=== PATIENT | male | born 1980 ===

== ENCOUNTER 2020-10-03 16:05 | Emergency (ER) | payer OTHER ==
[~2020-10-03] VITALS: Ht 172.7 cm; Wt 101.1 kg
--- NOTE | 2020-10-03 16:08 | NUR ---
Task RN: patient RA sat for EMS 89-90%. Patient to lobby and placed on O2.
[2020-10-03] MEDS ORDERED: IBUPROFEN 600 MG TABLET PO ONE (16:30)
[2020-10-03] MEDS ORDERED: ACETAMINOPHEN 500 MG TABLET PO ONE (16:30)
[2020-10-03 17:23] LABS: BASOPHILS % (AUTO) 0 % (0-1); EOSINOPHILS % (AUTO) 0 % (1-7); LYMPHOCYTES % (AUTO) 22 % (22-44); MEAN CORPUSCULAR HEMOGLOBIN 31.1 pg (27.5-34.5); MEAN CORPUSCULAR HGB CONC 35.2 g/dL (33.2-36.2); MEAN PLATELET VOLUME 7.9 fL (7.4-10.4); MONOCYTES % (AUTO) 7 % (2-9); NEUTROPHILS % (AUTO) 71 % (42-75); PLATELET COUNT 240 x10^3/uL (130-400); RED CELL DISTRIBUTION WIDTH 13.3 % (9.4-14.8)
[2020-10-03 17:30] LABS: CHLORIDE 92 mmol/L (98-107)
[2020-10-03 17:37] LABS: ALANINE AMINOTRANSFERASE 42 U/L (12-78); ALBUMIN 2.7 g/dL (3.4-5.0); ALKALINE PHOSPHATASE 87 U/L (45-117); ANION GAP 8 mmol/L (5-15); BILIRUBIN,TOTAL 0.6 mg/dL (0.2-1.0); CALCIUM 8.2 mg/dL (8.5-10.1); CREATININE 1.21 mg/dL (0.7-1.3); TOTAL PROTEIN 7.5 g/dL (6.4-8.2)
[2020-10-03] MEDS ORDERED: IBUPROFEN 600 MG TABLET ONE (19:30)
[2020-10-03] MEDS ORDERED: ACETAMINOPHEN 500 MG TABLET ONE (19:30)
--- NOTE | 2020-10-03 19:40 | NUR ---
BIBA FOR SOB/COUGH X1 WEEK. PT STATES UNKNOWN COVID EXPOSURE, -COVID VACCINE. PT A&O, RESPS EVEN AND UNLABORED, NADN. MEDICATED PER ORDER, TOLERATED WELL.
[2020-10-03] MEDS ORDERED: DEXAMETHASONE 4 MG TABLET ONE (19:59)
[2020-10-03] MEDS ORDERED: DEXAMETHASONE 4 MG TABLET PO ONE (20:00)
--- NOTE | 2020-10-03 20:13 | NUR ---
Pt road test without o2 sat 89-91%.
[2020-10-03] MEDS ORDERED: DOXYCYCLINE 100MG TABLET PO ONE (22:00)
[2020-10-03] MEDS ORDERED: FILTER 0.22 MICRON IV ONE (22:00)
[2020-10-03] MEDS ORDERED: CASIRIVIMAB 600 MG, IMDEVIMAB (REGN10987) 600 MG in SODIUM CHLORIDE 0.9% 250 ML IVPB ONE (22:00)
[2020-10-03] MEDS ORDERED: SODIUM CHLORIDE 0.9%, 500ML IVBOLUS ONE (22:30)
[2020-10-03 23:00] VITALS: BP 122/85
--- NOTE | 2020-10-04 00:38 | NUR ---
pt educated on dc instructions, verbalzed undertsanding. ambulatory to dc desk with steday gaitbrionna.
== END 2020-10-04 00:44 | disposition home or self-care (01) ==
LOC: ED 23:59
DX: U07.1 COVID-19 (principal); J12.82 Pneumonia due to coronavirus disease 2019; R06.02 Shortness of breath; E87.1 Hypo-osmolality and hyponatremia; J06.9 Acute upper respiratory infection, unspecified
CPT/HCPCS: 71045; 80053; 83605; 84145; 85025; 87040; 93005; 96360; 99285; J7040; M0243; U0003; U0005